=== PATIENT | female | born 1965 | race Caucasian/White ===

== ENCOUNTER 2017-05-04 18:31 | Emergency (ER) | payer MEDICARE ==
--- NOTE | 2017-05-04 19:02 | ED.PDOC ---
History of Present Illness - General Chief Complaint: General Stated Complaint: WEAKNES AND SHAKING Time Seen by Provider: 05/04/17 18:59 Source: patient Additional Information: ITS BEEN A MONTH SINCE SHE FEELS WEAK AND HAS SHAKINESS. TWO WEEKS AGO SHE WAS ADMITTED TO THE [facility] [place] AND DISCHARGED. NO ACUTE FINDINGS WERE NOTED. SHE HAS ALSO BEEN SEEN AT [facility] AND NOTED TO SLIGHTLY HYPOKALEMIC. YESTERDAY THE PATIENT WAS SEEN BY DR. LOUIS AGAIN, NO ACUTE FINDINGS. SHE CONTINUES WITH GENERALIZED WEAKNESS AND SHAKES, REASON WHY SHE IS HERE TODAY. - History of Present Illness Timing/Duration: other - ONE MONTH Severity: moderate Worsening Factors: nothing Associated Symptoms: denies symptoms Allergies/Adverse Reactions: Allergies Valproic Acid [From Depakote] Allergy (Verified 05/04/17 19:07) Other "Swells up" Aripiprazole [From Abilify] Adverse Reaction (Verified 05/04/17 19:10) Other Causes her to be angry Aspirin Adverse Reaction (Verified 05/04/17 19:10) Other Pt reports a childhood toxicity and now does not take this medication by choice Fluoxetine [From Prozac] Adverse Reaction (Verified 05/04/17 19:10) Other Causes her to be angry Review of Systems - Review of Systems Constitutional: States: malaise, weakness EENTM: States: no symptoms reported Respiratory: States: no symptoms reported Cardiology: States: no symptoms reported Gastrointestinal/Abdominal: States: no symptoms reported Genitourinary: States: no symptoms reported Musculoskeletal: States: no symptoms reported Skin: States: no symptoms reported Neurological: States: anxiety, tremors, weakness Endocrine: States: no symptoms reported Hematologic/Lymphatic: States: no symptoms reported All other Systems: Reviewed and Negative, No Change from Baseline Past Medical History (General) - Social History Hx Tobacco Use: No Hx Alcohol Use: No Family Medical History - Family History Mother Living Status: Still Living Hx Family Hypertension: Yes Physical Exam - Physical Exam General Appearance: Alert, Anxious, Well Hydrated Eye Exam: bilateral normal Ears, Nose, Throat: hearing grossly normal, normal ENT inspection Neck: non-tender, full range of motion, supple, normal inspection Respiratory: chest non-tender, normal breath sounds Cardiovascular/Chest: normal peripheral pulses, regular rate, rhythm, no edema, no gallop, no JVD, no murmur Peripheral Pulses: radial,right: 2+, radial,left: 2+ Gastrointestinal/Abdominal: normal bowel sounds, non tender, soft, no organomegaly, no pulsatile mass Rectal Exam: deferred Back Exam: normal inspection Extremity: normal range of motion, non-tender, no pedal edema, no calf tenderness Neurologic: no motor/sensory deficits, alert, oriented x 3 Skin Exam: normal color Lymphatic: no adenopathy Progress - Progress Progress: 05/04/17 20:40 EKG: HR OF 92, VA INTERVAL OF 180, QRS OF 82, AXIS OF 6 DEGREES. IMPRESSION; SINUS RHYTHM, EVIDENCE OF ANTEROSEPTAL GA , AGE UNDETERMINED. NO TRACES AVAILABLE TO COMPARE WITH. - Results/Orders Results/Orders: LABS ARE REPORTED AND NO ACUTE ABNORMALITIES ARE NOTED. Departure - Departure Clinical Impression: Tremor, Weakness Time of Disposition: 20:45 Disposition: Discharge to Home or Self Care Condition: Fair Diet: resume usual diet Referrals: HUSAM LOUIS [Primary Care Provider] - 1-2 Weeks
--- NOTE | 2017-05-04 19:28 | RAD ---
PROCEDURE: XR CHEST 1 VIEW HISTORY: SOB COMPARISON: None TECHNIQUE: Single projection of the chest was done. FINDINGS: The lung amezcua are well inflated . There are no discrete airspace infiltrates, pneumothoraces or pleural effusions. The pulmonary vascularity is normal. The cardiomediastinal silhouette is unremarkable for patient's age and sex. IMPRESSION: There is no acute pleural-parenchymal process seen in the imaged lung amezcua. Location of Interpretation: Teleradiology Electronically signed by: Emmett Massey MD 05/04/2017 7:27 PM CDT Workstation: [id number]
[2017-05-04 21:21] VITALS: BP 150/95; TEMP 97.8; O2SAT 97
== END 2017-05-04 21:21 | disposition home or self-care (01) ==
LOC: ER 18:31
DX: R53.1 Weakness (principal); R25.1 Tremor, unspecified; Z88.8 Allergy status to other drugs, medicaments and biological substances; Z88.6 Allergy status to analgesic agent; R94.31 Abnormal electrocardiogram [ECG] [EKG]